=== PATIENT | male | born 1995 | race Two or more races ===

== ENCOUNTER 2021-01-08 06:33 | Emergency (ER) | payer MEDICAID ==
[~2021-01-08] VITALS: Ht 177.8 cm; Wt 65.8 kg
[2021-01-08 07:33] VITALS: BP 137/87
== END 2021-01-08 07:48 | disposition home or self-care (01) ==
LOC: ER 06:33
DX: Z04.1 Encounter for examination and observation following transport accident (principal); V43.52XA Car driver injured in collision with other type car in traffic accident, initial encounter; Y93.89 Activity, other specified; Y92.89 Other specified places as the place of occurrence of the external cause; Y99.8 Other external cause status